=== PATIENT | female | born 1930 | race Caucasian/White ===

== ENCOUNTER 2018-01-22 16:54 | Observation (INO) | payer BC, MEDICARE ==
[~2018-01-22] VITALS: Ht 162.6 cm; Wt 58.1 kg
[~2018-01-22 16:54] MED LIST: Z.0.LOTREL 5-20 MG1 PO
[2018-01-22] MEDS ORDERED: METHYLPREDNISOLONE SOD SUCC 125 MG/2ML VIAL IV STA (17:02)
[2018-01-22] MEDS ORDERED: IPRATROPIUM BROMIDE 0.02% 2.5 ML NEB NEB STA (17:02)
[2018-01-22] MEDS ORDERED: ALBUTEROL SULF 0.083% NEB SOLN 3 ML NEB NEB STA (17:02)
[2018-01-22] MEDS ORDERED: AZITHROMYCIN 500MG/NS 250 ML 250 ML IV STA (17:34)
[2018-01-22] MEDS ORDERED: CEFTRIAXONE SOD 1 GM VIAL IV SCH (17:45)
--- NOTE | 2018-01-22 18:36 | Diagnostic Imaging Report ---
EXAMINATION: CHEST SINGLE (PORTABLE) INDICATION: Shortness of breath COMPARISON: None FINDINGS: TUBES and LINES: None. LUNGS: Lungs are well inflated. Chronic appearing change in the lungs. There is no evidence of pneumonia or pulmonary edema. PLEURA: No pleural effusion or pneumothorax. HEART AND MEDIASTINUM: The cardiomediastinal silhouette is unremarkable. BONES AND SOFT TISSUES: No acute osseous lesion. Soft tissues are unremarkable. UPPER ABDOMEN: No free air under the diaphragm. IMPRESSION: Chronic appearing change in the lungs. Signed by: Dr. Bennett Dominguez M.D. on 01/22/2018 6:33 PM
[2018-01-22] MEDS ORDERED: ALBUTEROL/IPRATROPIUM 3 ML NEB NEB ONE (19:00)
--- NOTE | 2018-01-22 19:04 | NUR ---
Lab called regarding need for lab draw.
[2018-01-22 19:54] LABS: BASOPHILS % 0.4 % (0.0-1.0); EOSINOPHILS % 0.5 % (0.0-6.0); HEMATOCRIT 39.7 % (34.2-44.1); HEMOGLOBIN 13.1 g/dL (12.0-16.0); LYMPHOCYTES # (AUTO) 1.9 (1.0-3.2); LYMPHOCYTES % 23.9 % (18.0-39.1); MEAN CORPUSCULAR HEMOGLOBIN 29.8 pg (28-32); MEAN CORPUSCULAR VOLUME 90.4 fL (81-99); MONOCYTES # (AUTO) 0.5 (0.2-0.8); MONOCYTES % 6.9 % (4.4-11.3); NEUTROPHILS # (AUTO) 5.2 (2.1-6.9); NEUTROPHILS % 67.8 % (38.7-80.0); PLATELET COUNT 171 x10e3/uL (140-360); RED BLOOD COUNT 4.39 x10e6/uL (3.6-5.1); RED CELL DISTRIBUTION WIDTH 12.5 % (11.7-14.4)
[2018-01-22] MEDS ORDERED: METHYLPREDNISOLONE SOD SUCC 125 MG/2ML VIAL ONE (20:06)
[2018-01-22 20:11] LABS: ALANINE AMINOTRANSFERASE 8 IU/L (0-55); ALBUMIN 3.6 g/dL (3.5-5.0); ALKALINE PHOSPHATASE 75 IU/L (40-150); ANION GAP 15.7 mmol/L (8-16); BLOOD UREA NITROGEN 18 mg/dL (7-26); BUN/CREATININE RATIO 21 (6-25); CALCIUM 9.5 mg/dL (8.4-10.2); CARBON DIOXIDE 25 mmol/L (22-29); CHLORIDE 105 mmol/L (98-107); CREATINE KINASE 30 IU/L (29-168); CREATININE, SERUM 0.84 mg/dL (0.57-1.11); EST GLOMERULAR FILTRATION RATE > 60 ML/MIN (60-); GLUCOSE 106 mg/dL (74-118); MAGNESIUM 1.8 MG/DL (1.3-2.1); POTASSIUM 3.7 mmol/L (3.5-5.1); SODIUM 142 mmol/L (136-145)
--- NOTE | 2018-01-22 20:11 | NUR ---
Report and care hand off given to TENISHA Spear.
[2018-01-22 20:28] LABS: INR 0.85; PROTHROMBIN TIME 12.4 seconds (11.9-14.5)
[2018-01-22 20:29] LABS: PARTIAL THROMBOPLASTIN TIME 26.7 seconds (23.8-35.5)
--- NOTE | 2018-01-22 21:46 | NUR ---
PT RESTING COMFORTABLY IN BED AT THIS TIME, VSS. DENIES PAIN/DISCOMFORT. NO S/S DISTRESS NOTED.
[2018-01-22] MEDS ORDERED: SODIUM CHLORIDE 0.9% 1000ML 1,000 ML IV SCH (22:06)
[2018-01-22] MEDS: ALBUTEROL SULF 0.083% NEB SOLN 3 ML NEB NEB SCH (22:15)
[2018-01-22] MEDS ORDERED: SEVOFLURANE INHAL SOLN 250 ML PEN BTL INH ONE (22:23)
[2018-01-22] MEDS ORDERED: PROPOFOL IV EMULSION 10 MG/ML 20 ML VIAL IV ONE (22:23)
[2018-01-22] MEDS ORDERED: LIDOCAINE HCL 2% LOCAL INJ 5 ML SDV VIAL INJ ONE (22:23)
--- OUTSIDE RECORDS SUMMARY | 2018-01-22 22:25 | XMS REPORT ---
Author Author [facility] Address Unknown Phone Unavailable Care Team Providers Care Testing Projects Administrator Name Role Phone BENITEZ HOLDEN Unavailable Unavailable Problems This patient has no known problems. Allergies, Adverse Reactions, Alerts This patient has no known allergies or adverse reactions. Medications This patient has no known medications. Results Test Description Test Time Test Comments Text Results Atomic Results Result Comments CHEST SINGLE (PORTABLE) 2018-01-22 18:32:00 [place] [address] Patient Name: NICK SEGOVIA MR #: [id number] : 1930 Age/Sex: 87/F Req #: [id number] Adm Physician: Ordered by: BENITEZ HOLDEN SOLUTIONS DELIVERY CONSULTANT Report #: [id number] Location: ER Room/Bed: Procedure: [id number] DX/CHEST SINGLE (PORTABLE) Exam Date: 01/22/18 Exam Time: 1736 REPORT STATUS: Signed EXAMINATION: CHEST SINGLE (PORTABLE) IND ICATION: Shortness of breath COMPARISON: None FINDINGS: TUBES and LINES: None. LUNGS: Lungs are well inflated. Chronic appearing change in the lungs. There is no evidence of pneumonia or pulmonary edema. PLEURA: No pleural effusion or pneumothorax. HEART AND MEDIASTINUM: The cardiomediastinal silhouette is unremarkable. BONES AND SOFT TISSUES: No acute osseous lesion. Soft tissues are unremarkable. UPPER ABDOMEN: No free air under the diaphragm. IMPRESSION: Chronic appearing change in the lungs. Signed by: Dr. Bennett Dominguez M.D. on 01/22/2018 6:33 PM Dictated By: BENNETT DOMINGUEZ MD, MD 32 Transcribed By: FENG on 01/22/181832 COPY TO: BENITEZ HOLDEN NP
[2018-01-23] VITALS (8 sets, daily range): BP systolic 109–138; BP diastolic 53–63
[2018-01-23] MEDS: ALBUTEROL SULF 0.083% NEB SOLN 3 ML NEB NEB SCH ×3 (02:15→11:15)
[2018-01-23 06:02] LABS: BILIRUBIN,URINE NEGATIVE (NEGATIVE); CLARITY,URINE CLEAR (CLEAR); COLOR,URINE YELLOW (YELLOW); KETONES,URINE NEGATIVE (NEGATIVE); LEUKOCYTE ESTERASE ,URINE NEGATIVE (NEGATIVE); NITRITE,URINE NEGATIVE (NEGATIVE); PROTEIN,URINE DIPSTICK NEGATIVE (NEGATIVE); URINE UROBILINOGEN 0.2 mg/dL (0.2 - 1)
[2018-01-23 06:27] LABS: BACTERIA,URINE RARE /HPF; EPITHELIAL CELLS,URINE RARE /LPF; TRANSITIONAL EPI CELLS,URINE RARE
--- NOTE | 2018-01-23 07:27 | NUR ---
pt resting in bed, bedside pulse ox and o2 on, sats wnl. no distress noted. will continue to monitor
[2018-01-23] MEDS: IPRATROPIUM BROMIDE 0.02% 2.5 ML NEB NEB SCH ×2 (08:00)
[2018-01-23] MEDS ORDERED: CEFTRIAXONE SOD 1 GM VIAL IV SCH ×2 (08:00→09:00)
--- NOTE | 2018-01-23 08:26 | NUR ---
home meds reviewed and updated
[2018-01-23] MEDS ORDERED: ALBUTEROL SULF 0.083% NEB SOLN 3 ML NEB NEB PRN (10:45)
--- NOTE | 2018-01-23 11:16 | NUR ---
on unit, possible dc in cleared by respiratory and home o2 eval completed/setup
--- NOTE | 2018-01-23 13:13 | Consultation ---
DATE OF CONSULTATION: PULMONARY CONSULTATION REASON FOR CONSULTATION: Abnormal CT chest. CHIEF COMPLAINT: Shortness of breath and cough going on for last 4 years, progressively getting worse. HPI: Ms. Horn is an 87-year-old female. She moved from [place], and she is now following up at [facility]. She started having shortness of breath that progressively has been getting worse, so she was sent to the emergency room. Her exam is remarkable for markedly reduced air entry. She had a CT of the chest done at [facility]. The report shows that she does not have any pulmonary embolism and scattered nodules and ground-glass opacities. She denies any nausea, vomiting, chest pain. She does not have any pets at home. There is no work exposure. 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 She reported a lot of second-hand smoke as she was working in an office where smoking was allowed. Denies any family history of heart disease or lung disease. REVIEW OF SYSTEMS GENERAL: Denies any fever or chills. HEAD: Denies any head trauma. ENT: Denies any earache. CVS: Denies any chest pain. RESPIRATORY: Shortness of breath. OTHER: The rest of the review systems are negative except as in HPI. PAST MEDICAL HISTORY: Hypertension. PAST SURGICAL HISTORY: Knee replacement. Small-bowel resection. FAMILY AND SOCIAL HISTORY: She does not drink and does not smoke. PHYSICAL EXAMINATION VITAL SIGNS: Temperature 97.8, pulse of 94, blood pressure 136/61, respiratory rate of 18. O2 sat 98% on 2 liters. HEENT: Head is atraumatic, normocephalic. NECK: Supple. CHEST: Markedly reduced air entry and wheezing bilaterally. EXTREMITIES: No pedal edema. NEUROLOGIC: Awake, alert, following commands. Responds to questions appropriately. LABS: White count of 7.73, hemoglobin 13.1, platelets 171. Chemistries within normal limits. ASSESSMENT: Ms. Horn is an 87-year-old female with chronic shortness of breath, wheezing and markedly reduced air entry with crackles and coughing. Also is complaining of hoarseness. She reports that she had a breathing tube down her throat in 2013 and after that the hoarseness started. She denies any choking and reports that she does not aspirate. PLAN 1. I will do a CT of the chest without contrast. 2. Oxygen as needed. 3. Continue the patient on nebulizer that has been started, and I will also start the patient on low-dose steroids as she is wheezing. Further recommendation after reviewing the CT of the chest. Job#: [id number]
[2018-01-23] MEDS: METHYLPREDNISOLONE SOD SUCC 40 MG/ML VIAL IV SCH ×2 (14:13→23:00)
--- NOTE | 2018-01-23 19:00 | NUR ---
WALKING ROUND PERFORMED AND OBSERVED PATIENT LYING IN BED A&OX3. DENIES PAIN/DISCOMFORT. CONT PULSE OX IN PLACE. O2 AT 96% ON 2L VIA NC. BED IN LOWEST/LOCKED POSITION. SIDE RAILS ARE UPX2 AND CALL LIGHT IN REACH. BED ALARM IS ON.
[2018-01-23] MEDS: AZITHROMYCIN 500MG/SOD CHL 0.9% 250ML BAG IV SCH (20:59)
--- NOTE | 2018-01-23 22:25 | Diagnostic Imaging Report ---
EXAM: CT Chest, high resolution, WITHOUT contrast INDICATION: ^R/O ILD hrct PLEASE COMPARISON: None TECHNIQUE: Chest was scanned utilizing a multidetector helical scanner from the lung apex through the level of the adrenal glands without administration of IV contrast. Absence of intravenous contrast decreases sensitivity for detection of lymphadenopathy and vascular pathology. Scan was performed during supine expiration, supine inspiration and prone inspiration. Coronal and sagittal reformations were obtained. HRCT protocol was performed. IV CONTRAST: None COMPLICATIONS: None RADIATION DOSE: Total DLP: 1149.4 mGy*cm Estimated effective dose: (DLP x 0.014 x size factor) mSv CTDIvol has been reviewed. It is below the limits set by the Radiation Protocol Committee (RPC). FINDINGS: LINES/ TUBES: None. LUNGS AND AIRWAYS: Mild traction bronchiectasis and scarring in the lingula and right middle lobe. Scattered few nodular and groundglass opacities as well as tree-in-bud opacities, for example in the right upper lobe (series 2 image 57). Mild biapical pleural parenchymal scarring. No consolidations. No significant air trapping on the expiratory phase. No honeycombing or fibrosis. Central airways are clear. PLEURA: The pleural spaces are clear. HEART AND MEDIASTINUM: Left thyroid lobe 0 point for centimeter nodule. No mediastinal, hilar or axillary lymphadenopathy. The heart is normal in size.. There is no pericardial effusion. . Main pulmonary artery measures 2.4 cm in diameter, within normal limits. Ascending aorta measures 3.6 cm in diameter, within normal limits. Three-vessel coronary artery and aortic calcifications. UPPER ABDOMEN: Small sliding hiatal hernia. Otherwise, unremarkable. BONES: There are degenerative changes in the thoracic spine. SOFT TISSUES: Unremarkable. IMPRESSION: 1. No evidence of fibrotic lung disease. 2. Mild traction bronchiectasis and scarring in the lingula and right middle lobe which may be due to prior infection. 3. Scattered nodules, ground glass opacities, and tree-in-bud opacities are likely inflammatory or infectious in etiology with differential including mycobacterial infection. Consider follow-up after appropriate therapy to document resolution. Signed by: DR. Wan Broussard MD on 01/23/2018 10:21 PM
[2018-01-24] VITALS (9 sets, daily range): BP systolic 116–148; BP diastolic 59–71
[2018-01-24] MEDS: METHYLPREDNISOLONE SOD SUCC 40 MG/ML VIAL IV SCH ×3 (06:35→22:38)
[2018-01-24] MEDS: CEFTRIAXONE SOD 1 GM VIAL IV SCH (09:01)
--- NOTE | 2018-01-24 09:02 | NUR ---
SPOKE TO RESPIRATORY THERAPIST AND PATIENT AT BEDSIDE. PATIENT DOES NOT QUALIFY FOR HOME OXYGEN. PATIENT INFORMED WHY SHE DOES NOT QUALIFY AND NOTIFIED OF PRICING AND LOCATIONS TO BUY TANKS IF SHE WANTS TO PAY OUT OF POCKET.
--- NOTE | 2018-01-24 13:38 | NUR ---
EDUCATED ABOUT [place], SIGNED, FILED IN CHART, WITH COPY LEFT WITH FAMILY AT BEDSIDE. SPOKE WITH PATIENT AND FAMILY ABOUT TRANSITION OF CARE AND PREFORMED BRIEF SOCIAL ASSESSMENT TO FIND; FEMALE LIVES IN APARTMENT WITH SON. TRU [phone]. HAS A WALKER AT HOME. SEES DR AYALA AT [facility]. NO PRIOR HOME HEALTH. PLAN IS TO RETURN HOME WITH NO BARRIERS TO DISCHARGE.
--- NOTE | 2018-01-24 15:32 | Diagnostic Imaging Report ---
PROCEDURE: X-RAY MODIFIED BARIUM SWALLOW COMPARISON: None. INDICATION: Coughing when swallowing. DISCUSSION: Fluoroscopic examination was performed in conjunction with speech pathology during swallowing a variety of thin and thick liquid consistencies. No penetration or aspiration is demonstrated. Trace vallecular and base of tongue residue is noted. CONCLUSION: No penetration or aspiration is demonstrated. Please refer to the speech pathology report for further details. Signed by: Dr. Martín Gray MD on 01/24/2018 3:28 PM
[2018-01-24] MEDS ORDERED: ALBUTEROL SULF 0.083% NEB SOLN 3 ML NEB NEB SCH (18:15)
--- NOTE | 2018-01-24 19:21 | NUR ---
Report received and walking rounds complete. Pt resting in bed watching tv and in no apparent distress. All safety measures ensured, bed alarm on, and pt call sosa near. Pt using 2L NC and has bedside commode.
[2018-01-24] MEDS: ACETYLCYSTEINE 20% INHAL SOLN 30 ML VIAL INH SCH (19:45)
[2018-01-24] MEDS: ALBUTEROL SULF 0.083% NEB SOLN 3 ML NEB NEB SCH (19:45)
[2018-01-24] MEDS: AZITHROMYCIN 500MG/SOD CHL 0.9% 250ML BAG IV SCH (20:20)
[2018-01-25] VITALS: BP 127/59
[2018-01-25] MEDS: ALBUTEROL SULF 0.083% NEB SOLN 3 ML NEB NEB SCH ×4 (01:51→19:30)
[2018-01-25 04:00] VITALS: BP 104/55
[2018-01-25] MEDS: METHYLPREDNISOLONE SOD SUCC 40 MG/ML VIAL IV SCH ×3 (06:17→22:52)
--- NOTE | 2018-01-25 06:47 | NUR ---
Walking rounds complete. Report given to oncoming nurse.
[2018-01-25 07:19] VITALS: BP 114/65
[2018-01-25] MEDS: ACETYLCYSTEINE 20% INHAL SOLN 30 ML VIAL INH SCH ×3 (07:46→19:30)
--- NOTE | 2018-01-25 08:10 | NUR ---
CM SPOKE TO PATIENT AT BEDSIDE REGARDING HOME HEALTH ORDERS FOR PT EVAL AND TREAT AND LONG-TERM EVAL. PATIENT CHOSE [facility]; CHOICE LETTER SIGNED AND PLACED IN CHART. CLINICAL SENT TO [facility] AT (f) [phone]. CM CALLED [facility] AT [phone]; COLLAR BASTER JUMPBASTING KARLA CONFIRMED CLINICAL AND ORDER WAS RECEIVED. PENDING ACCEPTANCE. [facility] Address: [address] [place] [address], [place] [address] CM TO FOLLOW UP PRIOR TO DC
[2018-01-25] MEDS: CEFTRIAXONE SOD 1 GM VIAL IV SCH (08:49)
--- NOTE | 2018-01-25 09:10 | NUR ---
patient NPO for bronchoscopy this am. consent obtained. see shift assess. vitals stable.
[2018-01-25 10:44] VITALS: BP 145/66
--- NOTE | 2018-01-25 10:50 | NUR ---
Patient off unit for Bronchoscopy via bed with staff.
[2018-01-25] MEDS ORDERED: LIDOCAINE HCL 4% 50 ML BTL ONE (11:14)
[2018-01-25] MEDS ORDERED: LIDOCAINE HCL 2% 30 ML TUBE ONE (11:15)
[2018-01-25 12:20] VITALS: BP 136/61
--- NOTE | 2018-01-25 12:20 | NUR ---
Patient returned from Bronchoscopy, fully awake and alert. 136/61, 88HR, 19rr and 95% on 3L NC. No complaints voiced at this time. Will continue to monitor.
--- NOTE | 2018-01-25 13:54 | Operative Report ---
DATE OF PROCEDURE: PROCEDURE PERFORMED: Bronchoscopy with bronchioalveolar lavage. PREPROCEDURE DIAGNOSIS: Chronic cough. POSTPROCEDURE DIAGNOSIS: Normal endobronchial airways. TAR PROCESSING TECHNICIAN: None. ANESTHESIA: General. PROCEDURE IN DETAIL: Bronchoscope was advanced through the LMA. Vocal cords were examined. They were moving normally. Lidocaine 4% was given. Trachea was entered. Zainab was identified. Lidocaine 2% was given during the procedure multiple times. Both lungs were examined. Right upper lobe, middle lobe, lower lobe were examined. No endobronchial lesion was seen, thin secretions, no mucous plugging and no purulence. Left upper lobe, lingula and lower lobe were examined. No endobronchial lesion, no mucopurulence, thin secretions. They were suctioned clean from both sides. BAL was done from right middle lobe, and it was sent for Gram stain, culture, AFB, fungus and mycoplasma. COMPLICATIONS: None. BLOOD LOSS: None. Job#: [id number] [facility]
[2018-01-25 15:57] VITALS: BP 127/58
--- NOTE | 2018-01-25 16:00 | NUR ---
CM SPOKE TO PATIENT AT BEDSIDE REGARDING HOME HEALTH ORDERS FOR PT EVAL AND TREAT AND INTERMEDIATE EVAL. PATIENT DENIED AT [facility] DUE TO UNAVAILABILITY OF SERVICE PROVIDERS IN THE AREA. PATIENT CHOSE [facility] THE NEXT OPTION; CHOICE LETTER SIGNED AND PLACED IN CHART. CLINICAL SENT TO [facility] AT (F) [phone]. CM CALLED [facility] AT (P) [phone]; RESIDENTIAL PROGRAM WORKER CONFIRMED CLINICAL AND ORDER WAS RECEIVED. PENDING ACCEPTANCE. [facility] (P) [phone] (F) [phone] CM TO FOLLOW UP IN AM FOR ACCEPTANCE.
--- NOTE | 2018-01-25 19:07 | NUR ---
Walking rounds done. report given to oncoming shift.
--- NOTE | 2018-01-25 19:18 | NUR ---
Walking round done and observed patient lying in bed A&Ox3. Denies pain/discomfort. O2 at 3L via NC. Continuos pulse ox at bedside with O2 sat 95%. No concern voiced at this time. Bed in lowest/locked position. Side rails are upx2 and call light in reach. Bed alarm is on.
--- NOTE | 2018-01-25 19:58 | NUR ---
Report received from ALBERT Carmichael. Walking rounds complete. Pt resting in bed receiving breathing treatment. All safety measures ensured, bed alarm on, and pt call sosa near.
[2018-01-25] MEDS: AZITHROMYCIN 500MG/SOD CHL 0.9% 250ML BAG IV SCH (20:52)
--- NOTE | 2018-01-25 21:42 | NUR ---
IV abx Azithromycin stopped. Pt c/o untolerable burning and pain and demanded to have it stopped. IV site red and slightly puffy but IV still intact and patent. IV site flashed and pt had no complaints of pain with flashing. Ice applied to IV site and will continue to monitor.
[2018-01-26] VITALS (8 sets, daily range): BP systolic 118–177; BP diastolic 63–85
[2018-01-26] MEDS: ALBUTEROL SULF 0.083% NEB SOLN 3 ML NEB NEB SCH ×4 (01:17→19:32)
[2018-01-26] MEDS: METHYLPREDNISOLONE SOD SUCC 40 MG/ML VIAL IV SCH ×3 (05:26→21:04)
--- NOTE | 2018-01-26 07:06 | NUR ---
report given to oncoming nurse.
[2018-01-26] MEDS: ACETYLCYSTEINE 20% INHAL SOLN 30 ML VIAL INH SCH ×3 (07:30→19:32)
--- NOTE | 2018-01-26 09:01 | NUR ---
pt resting in bed, able to make needs known. no c/o pain or s/s distress. will continue to monitor
[2018-01-26] MEDS: CEFTRIAXONE SOD 1 GM VIAL IV SCH (09:18)
--- NOTE | 2018-01-26 10:56 | NUR ---
CM SPOKE TO REGARDING BARRIER TO DISCHARGE. PATIENT IS STILL SOB UPON EXERTION. WE WILL RE-EVALUATE HOME O2 QUALIFICATION AND DISCUSS WITH DR. BELL HIS POC. CM SPOKE TO DR. BELL REGARDING HIS POC FOR PATIENT. DR. BELL STATED THE PATIENT BRONC WASHINGS WOULD NOT GROW ANYTHING FOR TWO WEEKS SO PATIENT IS OKAY TO DISCHARGE. CM PUT IN RT- HOME EVAL ORDER; IF PATIENT NEEDS HOME O2, CM WILL INITIATE PROCESS. PATIENT TO NOT BE DISCHARGED UNTIL HOME O2 AT BEDSIDE. PATIENT ACCEPTED AT [facility]. AND WILL BEGIN SERVICES 24 HRS AFTER DISCHARGE.
--- NOTE | 2018-01-26 12:58 | NUR ---
pt dc pending home o2 setup. pt to have PCP contact Dr Freed for bronch results/follow up
--- NOTE | 2018-01-26 13:30 | Discharge Summary ---
PRIMARY CARE DOCTOR: Dr. Bryan Martinez with [facility]. FINAL DIAGNOSIS: Chronic respiratory failure. SECONDARY DIAGNOSES 1. Bronchiectasis. 2. Hypertension. CONSULTANTS: Dr. Nix, house fellow. PROCEDURES/STUDIES PERFORMED 1. Chest computerized tomography. 2. Modified barium swallow study. 3. Bronchoscopy. HISTORY: Per H and P. HOSPITAL COURSE: The patient was admitted with hypoxia and chronic cough with CT scan showing bronchiectasis. The patient underwent modified barium swallow study to make sure that she is not aspirating. This was normal. The patient also underwent bronchoscopy, which shows thin secretions. Bronch wash was sent for mycobacterium to rule out MAC. The patient responded well with nebulizer treatment and steroids. Empiric antibiotic was given. However, this does not seem to be necessary any more. The patient will be going home today. She will need home oxygen due to chronic respiratory failure. The patient will also get a Medrol Dosepak. The patient will follow up with her primary care doctor in 2 weeks, and also [facility] house fellow. I will follow up with her bronch wash in 2 weeks to see if there is any mycobacterium. CONDITION ON DISCHARGE: Stable. DISCHARGE MEDICATIONS: Please see medication reconciliation form. The patient was seen and examined today. DOMINGO PRATHER M.D. Job#: [id number] RI cc:BRYAN MARTINEZ DO
--- NOTE | 2018-01-26 14:05 | NUR ---
PATIENT QUALIFIED FOR HOME OXYGEN; PATIENT INSURANCE ONLY TAKE 2 COMPANIES AND PATIENT REQUEST IN [facility]. PATIENT SIGNS CHOICE FOR [facility]. CLINICAL SENT TO F: [phone]; SPOKE TO RUBBER COVERING MACHINE OPERATOR AND CLINICAL RECEIVED. PENDING APPROVAL AND DELIVERY OF O2 TO BEDSIDE. [facility] F: [phone] P: [phone] SPEAK TO TERRY FOR CONFIRMATION.
--- NOTE | 2018-01-26 15:20 | NUR ---
CM/ SW: CERTIFICATION OF MEDICAL EQUIPMENT FORM PLACED ON CHART FOR DR. PRATHER TO SIGN. PLEASE FAX TO [facility] AND FOLLOW UP WITH ETA TO HOSPITAL. [employer] [facility] F: [phone] P: [phone] [facility] OFFICE: [phone] (USE THIS NUMBER)
--- NOTE | 2018-01-26 16:44 | NUR ---
pt stable, pending home o2 setup, should dc tomorrow
[2018-01-26] MEDS: AZITHROMYCIN 500MG/SOD CHL 0.9% 250ML BAG IV SCH (20:00)
[2018-01-27] VITALS (8 sets, daily range): BP systolic 123–150; BP diastolic 62–81
[2018-01-27] MEDS: ALBUTEROL SULF 0.083% NEB SOLN 3 ML NEB NEB SCH ×4 (01:10→19:36)
[2018-01-27] MEDS: ACETYLCYSTEINE 20% INHAL SOLN 30 ML VIAL INH SCH ×2 (06:31→19:36)
--- NOTE | 2018-01-27 06:33 | NUR ---
IJEOMA checked, and the order for home oxygen has not yet been signed by Dr. Freed. IJEOMA spoke with the nurse, and she stated Dr. Freed did not make rounds last evening. She will call IJEOMA when he comes today and signs order.
[2018-01-27] MEDS: METHYLPREDNISOLONE SOD SUCC 40 MG/ML VIAL IV SCH ×3 (06:44→20:54)
[2018-01-27] MEDS: CEFTRIAXONE SOD 1 GM VIAL IV SCH (08:30)
--- NOTE | 2018-01-27 12:31 | NUR ---
Rec'd signed Certificate of Medical Necessity [facility]-484 Oxygen. Called and notified [facility] answering service [phone], Awaiting return call.
--- NOTE | 2018-01-27 13:28 | NUR ---
Called In [facility] [phone] since nobody has return call. Answering will call on-call rep again and request they call at [phone]
--- NOTE | 2018-01-27 14:03 | NUR ---
Roque w/ In [facility] [phone] sated they did receive fax, but are unable to deliver oxygen until they receive auth from insurance, which will not be until Monday. CM notified Simran RN, pt nurse.
--- NOTE | 2018-01-27 14:07 | NUR ---
called [facility] [phone]. no answer
[2018-01-27] MEDS: AZITHROMYCIN 500MG/SOD CHL 0.9% 250ML BAG IV SCH (20:54)
[2018-01-28] MEDS: ALBUTEROL SULF 0.083% NEB SOLN 3 ML NEB NEB SCH ×4 (00:56→19:30)
[2018-01-28 05:35] VITALS: BP 128/58
[2018-01-28] MEDS: METHYLPREDNISOLONE SOD SUCC 40 MG/ML VIAL IV SCH ×3 (06:39→21:50)
[2018-01-28] MEDS: ACETYLCYSTEINE 20% INHAL SOLN 30 ML VIAL INH SCH ×2 (07:05→19:30)
[2018-01-28 07:42] VITALS: BP 148/67
[2018-01-28] MEDS: CEFTRIAXONE SOD 1 GM VIAL IV SCH (08:25)
[2018-01-28 11:23] VITALS: BP 139/62
[2018-01-28 15:37] VITALS: BP 141/64
[2018-01-28 20:00] VITALS: BP 170/74
[2018-01-28] MEDS: AZITHROMYCIN 500MG/SOD CHL 0.9% 250ML BAG IV SCH ×2 (20:00→21:50)
[2018-01-28 22:35] VITALS: BP 141/64
[2018-01-29] VITALS: BP 165/79
[2018-01-29] MEDS: ALBUTEROL SULF 0.083% NEB SOLN 3 ML NEB NEB SCH ×3 (00:55→15:00)
[2018-01-29 04:00] VITALS: BP 127/62
[2018-01-29] MEDS: METHYLPREDNISOLONE SOD SUCC 40 MG/ML VIAL IV SCH ×2 (06:38→14:49)
--- NOTE | 2018-01-29 07:00 | NUR ---
Handoff report and walking rounds with outgoing security shift supervisor nurseTacho. Pt awake at this time. NAD observed or reported.
[2018-01-29] MEDS: ACETYLCYSTEINE 20% INHAL SOLN 30 ML VIAL INH SCH (07:45)
[2018-01-29 08:13] VITALS: BP 149/70
--- NOTE | 2018-01-29 08:14 | NUR ---
Rounds with Dr. Osborn. Pt instructed to use 2L per NC for 18 hours/day. Pt verbalized understanding.
[2018-01-29] MEDS: CEFTRIAXONE SOD 1 GM VIAL IV SCH (09:09)
[2018-01-29 09:34] VITALS: BP 149/70
[2018-01-29 11:46] VITALS: BP 152/66
--- NOTE | 2018-01-29 12:25 | NUR ---
Rounds with Dr. Freed. Addendum: 01/29/18 at 1240 by Monika Walton RN Verbal orders received for Norvasc and Lotensin and entered.
[2018-01-29] MEDS ORDERED: AMLODIPINE BESYLATE 5 MG TAB PO SCH (13:00)
[2018-01-29] MEDS ORDERED: BENAZEPRIL HCL 10 MG TAB PO SCH (13:00)
--- NOTE | 2018-01-29 13:30 | NUR ---
CM SPOKE TO [facility] REGARDING HOME O2. PATIENT TO BE RE-EVALUATED SINCE LAST O2 EVAL WAS MORE THAN 48 HOURS AGO. PATIENT SON TO RETURN CALL TO O2 COMPANY TO MAKE PAYMENT FOR OUT OF POCKET EXPENSE. PENDING SON TO CALL AND PAY THEN [facility] TO DELIVER O2 AT BEDSIDE FOR DISCHARGE.
--- NOTE | 2018-01-29 14:39 | NUR ---
Pt is aggravated that she has to have a 3rd home O2 evaluation. Called wind field service manager to inform of situation.
--- NOTE | 2018-01-29 14:52 | NUR ---
PATIENT RECEIVING OXYGEN FOR [facility]: [facility]: [phone] Addendum: 01/29/18 at 1504 by Heather Ware CM Contact information for [facility] given to patient at bedside. ALBERT notified.
[2018-01-29 16:06] VITALS: BP 126/64
--- NOTE | 2018-01-29 17:20 | NUR ---
Discharge instructions given to patient. Pt verbalized understanding to follow up with Dr. Martinez in two weeks; and for Dr. Martinez to consult with Dr. Freed in regards to bronchoscopy results. Pt verbalized how to use home oxygen. Pt verbalized that she will use oxygen at 2-3Lpm to keep O2 sats 94% for 18 hours/day. IV removed with tip intact, pressure dressing applied. Pt tolerated well. Waiting for ride home at this time.
--- NOTE | 2018-01-29 17:45 | NUR ---
Pt son here to fiber picker patient. All belongings gathered and packed for the patient. Pt escorted to personal vehicle in stable condition with all belongings and portable oxygen tank.
== END 2018-01-29 17:58 | disposition home or self-care (01) ==
LOC: ER 16:58 → INTOOBSV 22:22 → ERHOLD 22:22 → IMCU 01-23 00:17
PROVIDERS: ADMIT Internal Medicine; ATTEND Internal Medicine
DX: J47.9 Bronchiectasis, uncomplicated (principal); J96.10 Chronic respiratory failure, unspecified whether with hypoxia or hypercapnia; R09.02 Hypoxemia; Z82.49 Family history of ischemic heart disease and other diseases of the circulatory system; I10 Essential (primary) hypertension; Z99.81 Dependence on supplemental oxygen
CPT/HCPCS: 31624; 36415; 71045; 71250; 74230; 80053; 81001; 82550; 82553; 83605; 83735; 83880; 84484; 85025; 85610; 85730; 87040; 87070; 87102; 87109; 87116; 87205 ×2; 87206 ×2; 87335; 92526 ×2; 92610; 92611; 93005; 94640 ×15; 94667; 94668 ×2; 96360; 96374; 97116 ×5; 97139; 97161; 97530 ×3; 99284; G0378 ×8; G8978; G8979; J0456 ×6; J0696 ×8; J2001; J2704; J2920 ×7; J2930; J7030

== ENCOUNTER → 2018-10-05 | Outpatient (CLI) | payer MEDICARE ==
[2018-10-05 15:03] LABS: ABG HCO3 33 mmol/L (23-28); ABG PCO2 53 mmHg (41-51); ABG PO2 74 mmHg (80-105)
== END ==
LOC: RESP 14:00
PROVIDERS: ATTEND Internal Medicine
DX: J96.11 Chronic respiratory failure with hypoxia (principal)
CPT/HCPCS: 36415; 36600; 82805

== ENCOUNTER 2018-11-29 14:35 | Emergency (ER) | payer MEDICARE ==
[~2018-11-29] VITALS: Ht 162.6 cm; Wt 58.1 kg
[2018-11-29 15:44] LABS: BASOPHILS % 0.4 % (0.0-1.0); EOSINOPHILS # (AUTO) 0.1 (0.0-0.4); EOSINOPHILS % 0.9 % (0.0-6.0); HEMATOCRIT 41.4 % (34.2-44.1); HEMOGLOBIN 13.4 g/dL (12.0-16.0); LYMPHOCYTES # (AUTO) 1.8 (1.0-3.2); LYMPHOCYTES % 23.1 % (18.0-39.1); MEAN CORPUSCULAR HEMOGLOBIN 29.2 pg (28-32); MEAN CORPUSCULAR HGB CONC 32.4 g/dL (31-35); MEAN CORPUSCULAR VOLUME 90.2 fL (81-99); MONOCYTES # (AUTO) 0.6 (0.2-0.8); MONOCYTES % 7.3 % (4.4-11.3); NEUTROPHILS # (AUTO) 5.4 (2.1-6.9); NEUTROPHILS % 67.9 % (38.7-80.0); PLATELET COUNT 212 x10e3/uL (140-360); RED BLOOD COUNT 4.59 x10e6/uL (3.6-5.1); RED CELL DISTRIBUTION WIDTH 12.4 % (11.7-14.4)
[2018-11-29 15:54] LABS: INR 0.85; PROTHROMBIN TIME 12.1 seconds (11.9-14.5)
[2018-11-29 15:55] LABS: PARTIAL THROMBOPLASTIN TIME 24.1 seconds (23.8-35.5)
--- NOTE | 2018-11-29 16:02 | NUR ---
PT BROUGHT BACK TO ROOM 4 VIA W/C FOR TREATMENT, PLACED ON BLOWER AND COMPRESSOR ASSEMBLER, AND O2 @2L N/C, NAD NOTED, BREATHING EVEN/UNLABORED.
[2018-11-29 16:04] LABS: ALANINE AMINOTRANSFERASE 16 IU/L (0-55); ALBUMIN 3.5 g/dL (3.5-5.0); ALBUMIN/GLOBULIN RATIO 0.9 (0.8-2.0); ALKALINE PHOSPHATASE 79 IU/L (40-150); ANION GAP 15.2 mmol/L (8-16); BLOOD UREA NITROGEN 16 mg/dL (7-26); BUN/CREATININE RATIO 19 (6-25); CALCIUM 9.8 mg/dL (8.4-10.2); CARBON DIOXIDE 28 mmol/L (22-29); CHLORIDE 101 mmol/L (98-107); CREATINE KINASE 26 IU/L (29-168); CREATININE, SERUM 0.85 mg/dL (0.57-1.11); EST GLOMERULAR FILTRATION RATE > 60 ML/MIN (60-); GLUCOSE 119 mg/dL (74-118); POTASSIUM 4.2 mmol/L (3.5-5.1); SODIUM 140 mmol/L (136-145)
[2018-11-29 16:23] LABS: THYROID STIMULATING HORMONE 0.776 uIU/mL (0.350-4.940)
[2018-11-29 16:56] LABS: BILIRUBIN,URINE NEGATIVE (NEGATIVE); CLARITY,URINE SL CLOUDY (CLEAR); COLOR,URINE YELLOW (YELLOW); KETONES,URINE NEGATIVE (NEGATIVE); LEUKOCYTE ESTERASE ,URINE TRACE (NEGATIVE); NITRITE,URINE POSITIVE (NEGATIVE); PROTEIN,URINE DIPSTICK TRACE (NEGATIVE); URINE UROBILINOGEN 1 mg/dL (0.2 - 1)
--- NOTE | 2018-11-29 17:06 | Diagnostic Imaging Report ---
EXAMINATION: CHEST SINGLE (PORTABLE) INDICATION: Shortness of breath COMPARISON: Chest CT of 01/23/2018, chest radiograph of 01/22/2018 FINDINGS: LINES/TUBES:EKG leads overlie the chest. LUNGS:The lungs are hyperinflated. No focal consolidation or pulmonary edema. Mild biapical pleural parenchymal thickening/scarring. PLEURA:No pleural effusion or pneumothorax. MEDIASTINUM:The cardiomediastinal silhouette appears unchanged in size and shape. Atherosclerotic calcifications of the thoracic aorta. BONES/SOFT TISSUES:No acute osseous injury. ABDOMEN:No free air under the diaphragm. IMPRESSION: Hyperinflated lungs with no focal pneumonia or pulmonary edema. Signed by: Ike Owen MD on 11/29/2018 5:03 PM
[2018-11-29 17:11] LABS: BACTERIA,URINE MANY /HPF
[2018-11-29] MEDS ORDERED: CEFTRIAXONE SOD 1 GM/NS 50 ML 50 ML IV ONE (17:45)
[2018-11-29 19:25] VITALS: BP 151/75
== END 2018-11-29 19:48 | disposition home or self-care (01) ==
LOC: ER 14:35
DX: R06.00 Dyspnea, unspecified (principal); J44.9 Chronic obstructive pulmonary disease, unspecified; N39.0 Urinary tract infection, site not specified; I10 Essential (primary) hypertension; Z98.0 Intestinal bypass and anastomosis status
CPT/HCPCS: 36415; 71045; 80053; 81001; 82550; 82553; 83880; 84443; 84484; 85025; 85610; 85730; 87086; 87186; 93005; 99284; J0696